=== PATIENT | female | born 1975 | race Caucasian/White ===

== ENCOUNTER 2025-06-27 11:00 | Day surgery (SDC) | payer MEDICARE, MEDICAID ==
[2025-06-27] VITALS (10 sets, daily range): BP systolic 94–108; BP diastolic 49–70; PULSE 60–64; RESP 14–18; TEMP 97.9; O2SAT 93–98
[~2025-06-27] VITALS: Ht 172.7 cm; Wt 83.5 kg
[~2025-06-27 11:00] MED LIST: ALB0.5UD NEB; ARIP10TA87 PO; BUPR-480 PO; DICY20TA14 PO; DOCUMENT DATE & TIME OF BETA-BLOCKER PO ONE; FLUT1BLS4 INH; HYDR-3686 PO; HYDR-3972 PO; LAMO100T PO; LEVA15HF6 IH; LIDOcaine 2% Viscous 15ml cup MM ONE; METO-395 PO; MONT-40 PO; ONDA-245 PO; PANT40TA54 PO; PROM12.512 PO; TRAZ150T78 PO; ringers solution, lacted 1,000 ML IV SCH
[2025-06-27] MEDS ORDERED: midazolam 1 mg/ML 2ml injection ONE (12:50)
[2025-06-27] MEDS ORDERED: fentaNYL/PF 50MCG/1 ML 2ML syringe ONE (12:50)
[2025-06-27] MEDS ORDERED: propofol inj 20 ML IV ONE (12:58)
[2025-06-27] MEDS ORDERED: LIDOcaine 2% (20mg/ml) 5ml vial ONE (12:59)
== END 2025-06-27 14:13 | disposition home or self-care (01) ==
LOC: GI LAB 11:00
PROVIDERS: ATTEND Internal Medicine Gastroenterology
DX: R10.13 Epigastric pain (principal); K29.70 Gastritis, unspecified, without bleeding; R11.2 Nausea with vomiting, unspecified; R10.33 Periumbilical pain; F32.A Depression, unspecified; F41.9 Anxiety disorder, unspecified; G47.33 Obstructive sleep apnea (adult) (pediatric); I10 Essential (primary) hypertension; I44.30 Unspecified atrioventricular block; I34.1 Nonrheumatic mitral (valve) prolapse; J43.9 Emphysema, unspecified; J45.909 Unspecified asthma, uncomplicated; Z90.49 Acquired absence of other specified parts of digestive tract; Z90.89 Acquired absence of other organs; Z87.891 Personal history of nicotine dependence; Z98.890 Other specified postprocedural states
CPT/HCPCS: 43239; 88305; 88342; A4615; J2003; J2250; J2704; J3010; J7120; Z7512; Z7610